=== PATIENT | male | born 1970 | race Caucasian/White ===

== ENCOUNTER 2018-04-08 12:22 | Emergency (ER) | payer OTHER, SELFPAY ==
[2018-04-08 12:25] VITALS: BP 135/96; PULSE 110; RESP 18; TEMP 36.1; O2SAT 97; BMI 28.1
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
[2018-04-08 13:13] VITALS: BP 135/90; PULSE 96; RESP 18; O2SAT 96
== END 2018-04-08 14:17 | disposition home or self-care (01) ==
PROVIDERS: Emergency Provider Emergency Medicine
DX: S42.002A Fracture of unspecified part of left clavicle, initial encounter for closed fracture (principal); V19.60XA Unspecified pedal cyclist injured in collision with unspecified motor vehicles in traffic accident, initial encounter
CPT/HCPCS: 73030; 99282; 99283